=== PATIENT | female | born 1960 | race Caucasian/White ===

== ENCOUNTER 2016-09-09 05:46 | Day surgery (SDC) | payer OTHER ==
[2016-09-09] MEDS ORDERED: BUPIVACAINE/EPI 0.25% 30 ML SDV ONE (06:46)
[2016-09-09] MEDS ORDERED: MIDAZOLAM 2 MG/2 ML VIAL ONE (06:54)
[2016-09-09] MEDS ORDERED: ceFAZolin 2 GM/DEXTROSE 100 ML IV ONE (07:00)
[2016-09-09] MEDS ORDERED: LIDOCAINE 1% 5 ML SDV ID PRN (07:03)
[2016-09-09] MEDS ORDERED: LR 1,000 ML IV ONE (07:03)
[2016-09-09] MEDS ORDERED: ONDANSETRON 4 MG/2 ML VIAL ONE ×2 (07:07→08:05)
[2016-09-09] MEDS ORDERED: PROPOFOL 200 MG/20 ML VIAL ONE (07:08)
[2016-09-09] MEDS ORDERED: fentaNYL 100 MCG/2 ML INJ ONE ×3 (07:08→08:36)
[2016-09-09] MEDS ORDERED: RANITIDINE 50 MG/2 ML VIAL ONE (07:09)
[2016-09-09] MEDS ORDERED: METOCLOPRAMIDE 10 MG/2 ML VIAL ONE (07:09)
[2016-09-09] MEDS ORDERED: GLYCOPYRROLATE 0.2 MG/1 ML VIAL ONE (07:09)
[2016-09-09] MEDS ORDERED: LIDOCAINE 2% 5 ML SDV ONE (07:10)
[2016-09-09] MEDS ORDERED: ONDANSETRON 4 MG/2 ML VIAL IVP ONE (07:30)
[2016-09-09] MEDS ORDERED: PHENYLEPHRINE HCL 100 MCG/ML SYR ONE (07:31)
[2016-09-09] MEDS ORDERED: DEXAMETHASONE 4 MG/ML VIAL ONE (07:59)
--- NOTE | 2016-09-09 10:05 | GOP ---
[f rep st] OPERATIVE REPORT DATE OF OPERATION: 09/09/2016 SURGEON: Duke Herring MD ANESTHESIA: General, Dr. Calvillo. PREOPERATIVE DIAGNOSIS: 1. Medical meniscus tear, left knee. 2. Patellofemoral chondromalacia, left knee. POSTOPERATIVE DIAGNOSIS: 1. Medical meniscus tear, left knee. 2. Lateral meniscus tear, left knee. 3. Patellofemoral chondromalacia, left knee. PROCEDURE PERFORMED: 1. Left knee arthroscopy with partial medial meniscectomy. 2. Partial lateral meniscectomy, left knee. FINDINGS: INDICATIONS: This is a 55-year-old female who injured her knee resulting in the above diagnosis. Sh hui has failed nonoperative treatment, and is being admitted for surgical care. DESCRIPTION OF PROCEDURE: After an adequate general anesthetic was obtained, exam under anesthesia r evealed a full range of motion. Roderick was stable. There was no varus, valgus or posterolateral la xity present. Pivot shift stable. The patient's left lower extremity was placed in the leg holding device with adequate padding, and wa s prepped and draped in the usual sterile fashion. The limb was exsanguinated with the Esmarch, and the tourniquet elevated to 300 mmHg pressure. The standard superolateral, anteromedial and anterolateral arthroscopic portals were established with an 11 blade. A 4 mm 30-degree arthroscope was introduced through the anterolateral portal, and a sy stematic examination of the knee was carried out. Suprapatellar pouch, medial and lateral gutters re vealed mild synovitis. The patellar articular surface revealed very severe, deep grade 3 chondromala vee which required a minimal chondroplasty. The femoral trochlea also revealed grade 2-3 chondromala vee centrally. The ACL and PCL were normal. The lateral compartment was entered. The lateral articular surfaces revealed grade 1 softening. The re was a small radial tear at the junction of the middle third and posterior horn of the lateral meni scus. A partial lateral meniscectomy was carried out, resecting this back to a stable 6 mm rim. The final rim was contoured and balanced with a small shaver. The medial compartment was entered. There was grade 1 softening on the medial femoral condyle and ti bial plateau. There was a grade 2 chondral fissure in the tibial plateau which was stable to probing . There was a flap tear in the posterior horn of the medial meniscus which was unstable to probing a nd was unrepairable as it was entirely in the avascular zone. A partial medial meniscectomy was newton ied out resecting this back to a stable 3 mm rim. The final rim was contoured and balanced with a all shaver. The 70-degree scope was introduced posteromedially and posterolaterally with no further posterior pat hology noted. The knee was irrigated until clear. The portals were closed using interrupted 3-0 nylon sutures. 20 cc of 0.25% plain Marcaine was injected intra-articularly. Sterile dressings were applied, followed by an Bhupendra wrap and the tourniquet deflated after 27 minutes tourniquet time. There were no complications. The patient tolerated the procedure well, and returned to the recovery room in stable condition. /[id number]/MODL
== END 2016-09-09 12:10 | disposition home or self-care (01) ==
LOC: FSGY 05:46
PROVIDERS: ATTEND Orthopaedic Surgery Sports Medicine
PROC: 0SBD4ZZ Excision of Left Knee Joint, Percutaneous Endoscopic Approach (ICD-10-PCS; principal; 2016-09-09 07:15)
DX: S83.242A Other tear of medial meniscus, current injury, left knee, initial encounter (principal); S83.282A Other tear of lateral meniscus, current injury, left knee, initial encounter; M22.42 Chondromalacia patellae, left knee; X50.0XXA Overexertion from strenuous movement or load, initial encounter; I10 Essential (primary) hypertension; K21.9 Gastro-esophageal reflux disease without esophagitis; G47.33 Obstructive sleep apnea (adult) (pediatric)
CPT/HCPCS: J0690; J1100; J2250; J2370; J2405; J2704; J2765; J2780; J3010

== ENCOUNTER 2016-10-06 14:58 | Emergency (ER) | payer OTHER ==
[2016-10-06 15:18] VITALS: BP 152/106; PULSE 81; RESP 93; TEMP 97.2
--- NOTE | 2016-10-06 16:37 | UCPHY ---
H & P Patient Type: New Chief Complaint Nursing Narrative: left leg swollen . R/O blood clot Source: Patient Exam Limitations: No limitations - Personal History Tetanus Vaccine Date: WITHIN 10 YRS - Medical/Surgical History Hx Asthma: No Hx Chronic Respiratory Disease: No Hx Diabetes: No Hx Cardiac Disease: No Hx Renal Disease: No Hx Cirrhosis: No Hx Alcoholism: No Hx HIV/AIDS: No Hx Splenectomy or Spleen Trauma: No Other PMH: knee surgery on September 09. Airplane flight last night - Family History Significant Family History: Other (Daughter had DVT and pulmonary embolism) - Social History Smoking Status: Never smoked Time Seen by Provider: 10/06/16 16:28 HPI/ROS: HPI: 56-year-old female presents to urgent care with chief concern left leg swelling. Had a left knee scope on September 09. She flu yesterday evening from [place] to [place]. Reports onset of left ankle and left leg swelling today. Denies fever, chills, shortness of breath, chest pain, nausea, vomiting , calf pain. No aggravating or alleviating factors. 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 No acute distress. Head: Normalocephalic. Atraumatic. EENT: PERRLA. EOMI. No pallor or injection. Anicteric. No nystagmus. No injection. Neck: Supple, nontender. No lymphadenopathy. Full range of motion. No meningismus. Respiratory: Breathing unlabored. Breath sounds equal bilaterally and clear to auscultation. No adventitious sounds. CV: Chest nontender, atraumatic. Heart rate regular. No murmur, distal pulses 2+ bilaterally. Brisk cap refill all extremities. GI: Abdomen soft, nontender. Bowel sounds normoactive and positive x4 quadrants. Neuro: Alert. Oriented x 3. Speech clear. Nonfocal cranial nerves throughout. Sensation intact all extremities. Skin: Skin warm, dry, intact. Skin turgor normal. Extremities: Full range of motion in all 4 extremities. Strength 5+ all extremities. Negative calf pain. Negative Homans. 1+ pitting pedal edema left ankle. (Elinor Burrell) Constitutional: Initial Vital Signs Temperature (C) 36.2 C 10/06/16 15:14 Heart Rate 81 10/06/16 15:14 Respiratory Rate 93 H 10/06/16 15:14 Blood Pressure 152/106 H 10/06/16 15:14 O2 Delivery Mode Room Air Allergies/Adverse Reactions: acetaminophen [From Percocet] Allergy (Verified 09/06/13 08:17) adhesive Allergy (Verified 11/20/13 11:55) oxycodone HCl [From Percocet] Allergy (Verified 09/06/13 08:17) pneumococcal 23-valent polysacchari [From Pneumovax 23] Allergy (Verified 20:30) Shellfish *RETIRED-05/08/12 [Shellfish] Allergy (Verified 11/17/10 20:30) Home Medications: Medication Instructions Recorded ALPRAZolam [Xanax] 0.5 - 1 mg PO PRN PRN MDD 1 11/17/10 ESTRADIOL 1 mg PO DAILY 11/17/10 Lisinopril/Hydrochlorothiazide 1 each PO DAILY 11/17/10 [Lisinopril-Hctz 20-12.5 Mg Tab] Temazepam [Restoril] 20 - 30 mg PO HS PRN 11/17/10 Medical Decision Making - Diagnostics Imaging: Ultrasound negative for DVT. Positive Guerrero's cyst. Final report pending at time this dictation. (Elinor Burrell) ED Course/Re-evaluation: 56-year-old female presents to urgent care with left leg swelling that onset over the last 24 hours. No shortness of breath or chest pain. Denies calf pain. Ultrasound negative for DVT. (Elinor Burrell) Differential Diagnosis: Differential diagnosis includes but is not limited to dependent edema, CHF, venous stasis (Elinor Burrell) Other Provider: The patient was evaluated and managed by the nurse practitioner, Elinor Burrell. My co-signature indicates that I have reviewed this chart and I agree with the findings and plan of care as documented. I am the secondary supervising physician. (Aleta Ko) Departure - Departure Disposition: Home, Routine, Self-Care Clinical Impression: Leg swelling, Guerrero cyst Condition: Good Instructions: Leg Edema (ED), Bakers Cyst (ED) Additional Instructions: Plan: Ultrasound is negative for DVT You have a Guerrero's cyst Follow up with your primary care provider tomorrow for recheck without fail-- When you call to schedule appointment, please let the office know you are an " ER follow up" appointment" Referrals: Mary Lou Stewart MD [Primary Care Provider] - As per Instructions Madalyn Lima PA [Physician Coper Hand] - As per Instructions - PQRS PQRS Measurement: Not applicable (Elinor Burrell)
--- NOTE | 2016-10-06 16:38 | US ---
Left Lower Extremity Ultrasound and Venous Duplex Doppler Study History: Left knee surgery September 09, 2016, foot swelling. Comparison: None available. Technique: High frequency transducer was used for imaging and Doppler study of the veins of the lowe r extremity. Pulsed Doppler and color Doppler were utilized, along with various maneuvers to assess flow in the veins. Findings: The deep veins of the lower extremity are normally compressible between the groin and the upper calf and have normal Doppler waveforms within them. The calf veins are difficult to visualize. No venous thrombosis is identified. There is a 3.0 x 0.9 x 5.1 cm hypoechoic collection in the popli teal fossa, suggesting a mildly complex Guerrero's cyst. Impression: 1. No evidence of deep vein thrombosis. 2. Guerrero's cyst. Findings discussed with Dr. Aleta Ko, on October 06, 2016 at 1629 hours.
== END 2016-10-06 16:50 | disposition home or self-care (01) ==
LOC: CED 14:58
DX: R22.42 Localized swelling, mass and lump, left lower limb (principal); M71.22 Synovial cyst of popliteal space [Baker], left knee
CPT/HCPCS: 93971-PO; 99203-PO; G0463-PO

== ENCOUNTER → 2017-04-13 | Outpatient (CLI) | payer OTHER | LOC: FIMAGING 12:02 | PROVIDERS: ATTEND Physician Assistant | DX: Z12.39 Encounter for other screening for malignant neoplasm of breast (principal); R92.8 Other abnormal and inconclusive findings on diagnostic imaging of breast | CPT/HCPCS: G0204 ==

== ENCOUNTER → 2018-09-20 | Outpatient (CLI) | payer OTHER | LOC: FIMAGING 08:19 | PROVIDERS: ATTEND Physician Assistant | DX: Z12.31 Encounter for screening mammogram for malignant neoplasm of breast (principal); N63.21 Unspecified lump in the left breast, upper outer quadrant; Z80.3 Family history of malignant neoplasm of breast ==

== ENCOUNTER → 2018-11-03 | Outpatient (CLI) | payer OTHER ==
[~2018-11-03] MED LIST: IOPAMIDOL (ISOVUE-300) 100 ML BTL ONE
== END ==
LOC: FIMAGING 08:42
PROVIDERS: ATTEND Physician Assistant
DX: K57.32 Diverticulitis of large intestine without perforation or abscess without bleeding (principal); K42.9 Umbilical hernia without obstruction or gangrene; Z90.49 Acquired absence of other specified parts of digestive tract; Z90.710 Acquired absence of both cervix and uterus
CPT/HCPCS: Q9967

== ENCOUNTER 2018-11-06 13:46 | Observation (INO) | payer OTHER ==
[2018-11-06] MEDS ORDERED: NS 1,000 ML IV ONE (14:38)
[2018-11-06] MEDS ORDERED: ONDANSETRON 4 MG/2 ML VIAL IVP ONE (14:38)
[2018-11-06] MEDS ORDERED: ACETAMINOPHEN 325 MG TAB PO ONE (14:43)
[2018-11-06 14:51] LABS: PLATELET COUNT 367 10^3/uL (150-400)
[2018-11-06] MEDS ORDERED: ONDANSETRON 4 MG/2 ML VIAL IVP PRN (15:21)
[2018-11-06] MEDS ORDERED: ACETAMINOPHEN 325 MG TAB PO PRN (15:21)
[2018-11-06] MEDS ORDERED: HYDROmorphONE/DILAUDID 1 MG/ML INJ IVP PRN (15:21)
[2018-11-06] MEDS ORDERED: HYDROCODONE/APAP 5/325 TAB PO PRN (15:21)
[2018-11-06] MEDS ORDERED: ONDANSETRON DISINTEGRATING 4 MG TAB PO PRN (15:21)
[2018-11-06] MEDS ORDERED: LORazepam 0.5 MG TAB PO PRN (15:21)
--- NOTE | 2018-11-06 15:26 | EDPHY ---
H & P Stated Complaint: abd pain Time Seen by Provider: 11/06/18 14:11 HPI/ROS: CHIEF COMPLAINT: Diverticulitis HISTORY OF PRESENT ILLNESS: This is a 58-year-old female who was diagnosed with diverticulitis 3 days ago. At that time she underwent CT scanning of her abdomen, ordered by her primary care provider. This study showed acute diverticulitis involving the distal descending colon and upper sigmoid with extensive pericolonic stranding but no abscess, pneumoperitoneum, mechanical obstruction. She was started on ciprofloxacin, Flagyl, and ondansetron. She began a clear liquid diet. However, for the past 2 days, she has been vomiting and unable to take her oral medications. As result, she presents the emergency department today. She is not had a bowel movement for the last 2 days. At no time did she have bloody diarrhea. She has not had fever. This is her 1st bout of diverticulitis. REVIEW OF SYSTEMS: A ten system review of systems was performed and is negative with the exception of the items mentioned in the HPI. Past medical and surgical history: 1. PTSD 2. Hypertension 3. Left meniscus repair 4. Hysterectomy 5. 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 She lives with . She does not use tobacco products. General Appearance: Alert. Vital signs reviewed. Eyes: Pupils equal and round, no conjunctival injection, no discharge. Anicteric. ENT, Mouth: Mucous membranes are slightly dry, no oropharyngeal erythema or edema. Neck: No lymphadenopathy, supple. Respiratory: Lungs are clear to auscultation; no wheezes, rales, or rhonchi. Cardiovascular: Regular rate and rhythm; no murmur, rub, or gallop. Gastrointestinal: Abdomen is soft with tenderness and guarding in the left lower quadrant. Skin: Warm and dry, no rashes on exposed skin, normal color. Back: Nontender to palpation over the thoracolumbar spine. No CVAT. Extremities: No lower extremity edema, no calf tenderness or swelling. Neurological: Alert and oriented. Moving all four extremities easily and equally. Psychiatric: Normal affect. - Personal History Current Tetanus/Diphtheria Vaccine: Yes Current Tetanus Diphtheria and Acellular Pertussis (TDAP): Yes Tetanus Vaccine Date: WITHIN 10 YRS - Medical/Surgical History Hx Asthma: No Hx Chronic Respiratory Disease: No Hx Diabetes: No Hx Cardiac Disease: No Hx Renal Disease: No Hx Cirrhosis: No Hx Alcoholism: No Hx HIV/AIDS: No Hx Splenectomy or Spleen Trauma: No Other PMH: knee surgery on September 09. Airplane flight last night, diverticulitis - Social History Smoking Status: Never smoked Constitutional: Initial Vital Signs Temperature (C) 36.8 C 11/06/18 13:51 Heart Rate 90 11/06/18 13:51 Respiratory Rate 16 11/06/18 13:51 Blood Pressure 112/87 H 11/06/18 13:51 O2 Sat (%) 91 L 11/06/18 13:51 O2 Delivery Mode Room Air Allergies/Adverse Reactions: Shellfish *RETIRED-05/08/12 [Shellfish] Allergy (Severe, Verified 11/06/18 15:33 ) Anaphylaxis adhesive Allergy (Verified 11/06/18 13:50) oxycodone HCl [From Percocet] Allergy (Verified 11/06/18 16:42) "Things go far away" pneumococcal 23-valent polysacchari [From Pneumovax 23] Allergy (Verified 13:50) Home Medications: Medication Instructions Recorded Ciprofloxacin [Cipro] 500 mg PO BID 11/06/18 EPINEPHrine [Epipen 0.3 MG] 0.3 mg IM ONCE PRN 11/06/18 Estradiol [Estradiol 1 MG (*)] 1 mg PO DAILY 11/06/18 Lisinopril/Hydrochlorothiazide 1 each PO DAILY 11/06/18 [Lisinopril-Hctz 10-12.5 mg Tab] Ondansetron [Ondansetron Odt] 8 mg PO TID 11/06/18 metroNIDAZOLE [Flagyl 500 mg (*)] 500 mg PO TID 11/06/18 Medical Decision Making ED Course/Re-evaluation: 58-year-old female with diverticulitis who has failed treatment. She is being admitted to the hospitalist service. In the emergency department ceftriaxone 2 g IV and Flagyl 500 mg a ordered. 1 L normal saline administered. Pain medicine available as needed. She is afebrile. Her abdomen is quite tender in left lower quadrant. She will need to watch carefully for any evidence of abscess, perforation, or obstruction. Labs pending at 3:25 p.m.. I reviewed the report of her CT scan done on November 03. I reviewed her blood work from 3 days ago. Differential Diagnosis: Abdominal pain including but not limited to appendicitis, bowel obstruction, viscus perforation, intra-abdominal abscess, diverticulitis, gastritis and urinary tract infection. - Data Points Laboratory Results: Laboratory Results 11/06/18 14:20 11/06/18 14:20 Medications Given: Discontinued Medications Acetaminophen (Tylenol) 650 mg PO EDNOW ONE Stop: 11/06/18 14:44 Last Admin: 11/06/18 15:22 Dose: 650 mg Acetaminophen (Tylenol) 650 mg PO Q4HRS PRN PRN Reason: Pain, Mild/Fever, Can Take PO Stop: 05/05/19 15:20 Last Admin: 11/06/18 19:25 Dose: 650 mg Estradiol (Estradiol) 1 mg PO DAILY EVAN Stop: 05/06/19 09:14 Last Admin: 11/07/18 09:47 Dose: 1 mg Lisinopril/HCTZ (Zestoretic) 1 ea PO DAILY EVAN Stop: 05/06/19 09:14 Last Admin: 11/07/18 09:47 Dose: 1 ea Sodium Chloride (Ns) 1,000 mls @ 0 mls/hr IV EDNOW ONE; Wide Open PRN Reason: Protocol Stop: 11/06/18 14:39 Last Admin: 11/06/18 14:46 Dose: 1,000 mls Ceftriaxone Sodium 2 gm/ (Sodium Chloride) 50 mls @ 100 mls/hr IV EDNOW ONE PRN Reason: Protocol Stop: 11/06/18 15:48 Last Admin: 11/06/18 16:47 Dose: 50 mls Metronidazole/Sodium Chloride (Flagyl 500 Mg (Premix)) 100 mls @ 100 mls/hr IV EDNOW ONE PRN Reason: Protocol Stop: 11/06/18 16:19 Last Admin: 11/06/18 15:37 Dose: 100 mls Sodium Chloride (Ns) 1,000 mls @ 150 mls/hr IV CONT EVAN Stop: 05/05/19 15:29 Last Admin: 11/07/18 05:50 Dose: 1,000 mls Piperacillin/Tazobactam/Dextrose (Zosyn 3.375 Gm (Premix)) 50 mls @ 100 mls/hr IV Q6HRS EVAN PRN Reason: Protocol Stop: 12/06/18 17:59 Last Admin: 11/07/18 12:17 Dose: 50 mls Ondansetron HCl (Zofran) 4 mg IVP EDNOW ONE Stop: 11/06/18 14:39 Last Admin: 11/06/18 14:46 Dose: 4 mg Ondansetron HCl (Zofran Odt) 4 mg PO Q4HRS PRN PRN Reason: Nausea/Vomiting, Use 1st Stop: 05/05/19 15:20 Last Admin: 11/06/18 19:28 Dose: 4 mg Promethazine HCl (Phenergan) 6.25 - 12.5 mg IVP Q6HRS PRN PRN Reason: Nausea/Vomiting, Use 2nd Stop: 05/05/19 15:20 Last Admin: 11/07/18 08:04 Dose: 6.25 mg Departure - Departure Disposition: [facility] Acute Clinical Impression: Diverticulitis Condition: Good
--- NOTE | 2018-11-06 16:39 | PDGENHP ---
History and Physical - Chief Complaint abd pain/n/v - History of Present Illness 58 yo F with PMH of HTN presenting to ER with complaints of n/v/abdominal pain. Patient was originally seen by her PCP on 11/03/18 for these sxs at which time an abdominal CT was performed revealing acute diverticulitis of distal descending and upper sigmoid colon. She was sent home with rx for cipro/flagyl but unfortunately over the subsequent several days her pain and n/v increased and she has been unable to hold down her medications or eat or drink very much. She notes the pain has seemed to increase and she has not been able to have a BM for the last several days either. She has not had fever or chills. She has never had similar issues in the past. History Information - Allergies/Home Medication List Allergies/Adverse Reactions: Shellfish *RETIRED-05/08/12 [Shellfish] Allergy (Severe, Verified 11/06/18 15:33 ) Anaphylaxis adhesive Allergy (Verified 11/06/18 13:50) oxycodone HCl [From Percocet] Allergy (Verified 11/06/18 16:42) "Things go far away" pneumococcal 23-valent polysacchari [From Pneumovax 23] Allergy (Verified 13:50) Home Medications: Ciprofloxacin [Cipro] 500 mg PO BID 11/06/18 [Last Taken 11/05/18] EPINEPHrine [Epipen 0.3 MG] 0.3 mg IM ONCE PRN 11/06/18 [Last Taken Unknown] Estradiol [Estradiol 1 MG (*)] 1 mg PO DAILY 11/06/18 [Last Taken 11/06/18] Lisinopril/Hydrochlorothiazide [Lisinopril-Hctz 10-12.5 mg Tab] 1 each PO DAILY 11/06/18 [Last Taken 11/06/18] Ondansetron [Ondansetron Odt] 8 mg PO TID 11/06/18 [Last Taken 11/06/18] metroNIDAZOLE [Flagyl 500 mg (*)] 500 mg PO TID 11/06/18 [Last Taken 11/06/18] I have personally reviewed and updated: family history, medical history, social history, surgical history - Past Medical History hypertension - Surgical History Reports: cholecystectomy, hysterectomy Additional surgical history: tonsillectomy. 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[employer] Review of Systems Review of Systems: ROS: 10pt was reviewed & negative except for what was stated in HPI & below Physical Exam Physical Exam: Temp Pulse Resp BP Pulse Ox 36.8 C 70 20 128/73 H 91 L 11/06/18 13:51 11/06/18 15:38 11/06/18 15:38 11/06/18 15:38 11/06/18 15:38 Constitutional: obese, uncomfortable Eyes: PERRL, anicteric sclera Ears, Nose, Mouth, Throat: moist mucous membranes, hearing normal Cardiovascular: regular rate and rhythym, no murmur, rub, or gallop, No edema Respiratory: no respiratory distress, no rales or rhonchi, clear to auscultation Gastrointestinal: tenderness (LLQ), No normoactive bowel sounds, No guarding, No rebound, No distension Genitourinary: no bladder tenderness Skin: warm, normal color Musculoskeletal: full muscle strength Neurologic: AAOx3 Psychiatric: interacting appropriately, not anxious, not encephalopathic Lab Data & Imaging Review 11/06/18 14:20 11/06/18 14:20 WBC 8.31 10^3/uL (3.80-9.50) 11/06/18 14:20 RBC 4.77 10^6/uL (4.18-5.33) 11/06/18 14:20 Hgb 14.8 g/dL (12.6-16.3) 11/06/18 14:20 Hct 43.8 % (38.0-47.0) 11/06/18 14:20 MCV 91.8 fL (81.5-99.8) 11/06/18 14:20 MCH 31.0 pg (27.9-34.1) 11/06/18 14:20 MCHC 33.8 g/dL (32.4-36.7) 11/06/18 14:20 RDW 12.5 % (11.5-15.2) 11/06/18 14:20 Plt Count 367 10^3/uL (150-400) 11/06/18 14:20 MPV 8.8 fL (8.7-11.7) 11/06/18 14:20 Neut % (Auto) 74.2 % (39.3-74.2) 11/06/18 14:20 Lymph % (Auto) 18.4 % (15.0-45.0) 11/06/18 14:20 [place] % (Auto) 6.6 % (4.5-13.0) 11/06/18 14:20 Eos % (Auto) 0.2 % (0.6-7.6) L 11/06/18 14:20 Baso % (Auto) 0.4 % (0.3-1.7) 11/06/18 14:20 Nucleat RBC Rel Count 0.0 % (0.0-0.2) 11/06/18 14:20 Absolute Neuts (auto) 6.16 10^3/uL (1.70-6.50) 11/06/18 14:20 Absolute Lymphs (auto) 1.53 10^3/uL (1.00-3.00) 11/06/18 14:20 Absolute Monos (auto) 0.55 10^3/uL (0.30-0.80) 11/06/18 14:20 Absolute Eos (auto) 0.02 10^3/uL (0.03-0.40) L 11/06/18 14:20 Absolute Basos (auto) 0.03 10^3/uL (0.02-0.10) 11/06/18 14:20 Absolute Nucleated RBC 0.00 10^3/uL (0-0.01) 11/06/18 14:20 Immature Gran % 0.2 % (0.0-1.1) 11/06/18 14:20 Immature Gran # 0.02 10^3/uL (0.00-0.10) 11/06/18 14:20 Sodium 133 mEq/L (135-145) L 11/06/18 14:20 Potassium 3.8 mEq/L (3.5-5.2) 11/06/18 14:20 Chloride 97 mEq/L (97-110) 11/06/18 14:20 Carbon Dioxide 26 mEq/l (22-31) 11/06/18 14:20 Anion Gap 10 mEq/L (6-14) 11/06/18 14:20 BUN 7 mg/dL (7-23) 11/06/18 14:20 Creatinine 0.8 mg/dL (0.6-1.0) 11/06/18 14:20 Estimated GFR > 60 11/06/18 14:20 Glucose 112 mg/dL (70-100) H 11/06/18 14:20 Calcium 9.2 mg/dL (8.5-10.4) 11/06/18 14:20 Visualized and Interpreted imaging results: Yes Interpretation: abd CT: descending colon diverticulitis without abscess or perforation Assessment & Plan Assessment: Diverticulitis (Acute) 58 yo F with PMH of HTN presenting with acute diverticulitis failing OP management # acute diverticulitis: patient has been failing outpatient management with increased n/v and inability to tolerate PO. Abdominal exam is reassuring although she does have decreased bowel sounds. Will get abdominal plain film to eval for signs of SBO or perforation which seems unlikely. Will switch abx to IV zosyn for now. IVF, antiemetics, IV opiates for pain management. If sxs fail to improve as expected or concern raised by abd xray will get repeat ct. # n/v: in the setting of above and presumably due to same, will provide prn antiemetics and IVF, advance diet as tolerated # hyponatremia: presumably hypovolemic hyponatremia in the setting of poor po intake as above # hypertension: BP has been borderline low since arrival, will hold her home lisinopril/hctz for now # observation status Patient new to my care. Old records reviewed and summarized as above. Care plan reviewed with ER doctor as above.
[2018-11-06] MEDS: NS 1,000 ML IV SCH (16:48)
[2018-11-06] MEDS: PIPERACILLIN/TAZO 3.375 GM/DEX 50 ML IV SCH (17:44)
[2018-11-07] MEDS: PROMETHAZINE HCL 25 MG/ML INJ IVP PRN ×2 (00:41→08:04)
[2018-11-07] MEDS: PIPERACILLIN/TAZO 3.375 GM/DEX 50 ML IV SCH ×3 (00:42→12:17)
[2018-11-07] MEDS: NS 1,000 ML IV SCH (05:50)
[2018-11-07 06:45] LABS: PLATELET COUNT 352 10^3/uL (150-400)
[2018-11-07] MEDS ORDERED: Epinephrine [Epipen 0.3 Mg] IM PRN (09:05)
[2018-11-07] MEDS ORDERED: LISINOPRIL/HCTZ 10/12.5 MG 1 EA TAB PO SCH (09:15)
[2018-11-07] MEDS ORDERED: ESTRADIOL 1 MG TAB PO SCH (09:15)
[2018-11-07 12:05] VITALS: BP 104/76
--- NOTE | 2018-11-07 12:57 | GDS ---
[f rep st] DISCHARGE SUMMARY DISCHARGE DIAGNOSIS: Diverticulitis. PHYSICAL EXAM: GENERAL: The patient is alert. VITAL SIGNS: Afebrile at 36.9, pulse 53, respirator y rate 16, and blood pressure 104/76. She is saturating 91% on room air. I have seen and evaluated the patient on the day of discharge. STUDIES AND PROCEDURES DONE: Abdominal x-ray. HOSPITAL COURSE: The patient is a 58-year-old female, who was diagnosed with diverticulitis in the o utpatient setting and started on ciprofloxacin, as well as Flagyl. She presented to the emergency ro om with complaints of increasing abdominal pain. She was evaluated and diagnosed with: 1. Acute diverticulitis. During this hospitalization she was treated with IV Zosyn. Her symptoms h ave completely improved and resolved. She is tolerating a regular diet. She has no further abdomina l pain, and she is eager to be discharged home. She states that she will be able to resume her previ ously prescribed ciprofloxacin, as well as Flagyl. 2. Constipation. This has resolved during this hospital course. I suspect this was the patient's u nderlying increase in discomfort. She has been educated to remain regular. 3. Nausea and vomiting. These, too, have resolved with antiemetics and resolution of her constipati on. 4. Hyponatremia in the setting of prerenal azotemia. She has responded well to IV hydration. Her s odium is within normal limits. 5. Hypertension. Her home medications have been continued. DISPOSITION: She will be discharged home with her this afternoon independently. There are n o pending studies. DISCHARGE MEDICATIONS: Please refer to EMR form. I have not discontinued the patient's previously p rescribed home medications, and she will resume her Flagyl and Cipro as previously indicated in the o utpatient setting. FOLLOWUP: Followup will be with Madalyn Seymour, the patient's primary care provider. I did offer the patient another night in the hospital for further IV antibiotic therapy. She has refused and would like to be discharged home. /[id number]/MODL
== END 2018-11-07 15:30 | disposition home or self-care (01) ==
LOC: F3E 16:37
PROVIDERS: ADMIT Internal Medicine; ATTEND Internal Medicine
DX: K57.32 Diverticulitis of large intestine without perforation or abscess without bleeding (principal); K59.00 Constipation, unspecified; R11.2 Nausea with vomiting, unspecified; E87.0 Hyperosmolality and hypernatremia; I10 Essential (primary) hypertension; F43.10 Post-traumatic stress disorder, unspecified
CPT/HCPCS: 74019; G0378; 96374; J0696; J2405; J2543; J2550